=== PATIENT | male | born 2000 | race Caucasian/White ===

== ENCOUNTER 2024-05-14 14:25 | Inpatient (IN) | payer BC ==
[2024-05-14] VITALS (7 sets, daily range): BP systolic 121–148; BP diastolic 59–91; TEMP 98.5–98.8; O2SAT 96–99
[~2024-05-14] VITALS: Ht 185.4 cm; Wt 63.3 kg
[2024-05-14 15:07] LABS: BASO # 0.2 10^3/uL (0.0-0.2); BASO % 0.6 % (0.0-1.0); HEMATOCRIT 52.5 % (42.0-52.0); HEMOGLOBIN 16.5 g/dl (13.5-17.5); LYMPH # 3.3 10^3/uL (1.5-5.0); LYMPH % 12.3 % (24.0-44.0); MEAN CORPUSCULAR HEMOGLOBIN 30.3 pg (27.0-33.0); MEAN CORPUSCULAR HGB CONC 31.4 g/dl (32.0-36.5); MEAN CORPUSCULAR VOLUME 96.5 fl (80.0-96.0); MONO # 1.9 10^3/uL (0.0-0.8); NEUTROPHILS # 20.3 10^3/uL (1.5-8.5); NEUTROPHILS % 75.8 % (36.0-66.0); PLATELET COUNT, AUTOMATED 511 10^3/uL (150-450); RED BLOOD COUNT 5.44 10^6/uL (4.30-6.10); WHITE BLOOD COUNT 26.8 10^3/uL (4.0-10.0)
[2024-05-14] MEDS: HumuLIN R (REGULAR) INSULIN (NovoLIN R) **100U/ML** PER UNIT IV ONE (15:15)
[2024-05-14] MEDS: NS 1,000 ML IV ONE ×3 (15:16→17:18)
[2024-05-14 15:24] LABS: VENOUS BASE EXCESS -28.3 (-2.0-2.0); VENOUS HCO3 3.5 MMOL/L (23.0-27.0); VENOUS O2 SATURATION 93.7 % (60.0-80.0); VENOUS PARTIAL PRESSURE CO2 18.1 mmHg (38.0-50.0); VENOUS PARTIAL PRESSURE O2 87.8 mmHg (30.0-50.0); VENOUS PH 6.906 UNITS (7.330-7.430); VENOUS STANDARD HCO3 6.7 MMOL/L; VENOUS TOTAL CO2 4.1 MMOL/L (24.0-28.0)
[2024-05-14] MEDS ORDERED: INSULIN IV RATE CHANGE DOCUMENTATION ML/HR XX SCH (15:35)
[2024-05-14 15:42] LABS: ACETONE/KETONE > 4.50 MMOL/L (0.02-0.27)
[2024-05-14 15:43] LABS: OSMOLALITY SERUM 353 MOSM/KG (275-295)
[2024-05-14 15:45] LABS: ALBUMIN 4.5 G/DL (3.2-5.2); ALKALINE PHOSPHATASE 202 U/L (40-129); ALT/SGPT 20 U/L (7.0-40); AST/SGOT 13 U/L (<34); BILIRUBIN,DIRECT 0.1 MG/DL (<0.4); BILIRUBIN,TOTAL 0.4 MG/DL (0.3-1.2); BLOOD UREA NITROGEN 31 MG/DL (9-23); CALCIUM LEVEL 9.8 MG/DL (8.5-10.1); CHLORIDE LEVEL 85 MMOL/L (98-107); CREATININE FOR GFR 1.44 MG/DL (0.70-1.30); GLOMERULAR FILTRATION RATE > 60.0 (>60); SODIUM LEVEL 123 MMOL/L (136-145); TOTAL PROTEIN 9.1 G/DL (5.7-8.2)
[2024-05-14] MEDS: ONDANSETRON 4MG 2ML VIAL IV ONE (15:45)
[2024-05-14] MEDS: INSULIN REGULAR IN 0.9 % NACL 100 UNIT in IV 1 EA IV SCH (15:46)
[2024-05-14 15:53] LABS: CARBON DIOXIDE LEVEL < 10.0 MMOL/L (20-31); GLUCOSE, FASTING 793 MG/DL (60-100); POTASSIUM SERUM 6.2 MMOL/L (3.5-5.1)
[2024-05-14] MEDS: CALCIUM GLUCONATE 1,000 MG in DEXTROSE 5% (D5W) MINI-BAG PLU 100 ML IV ONE (16:23)
[2024-05-14] MEDS ORDERED: INSUH10VL INJ (16:44)
[2024-05-14] MEDS ORDERED: HOME MED LIST COMPLETE! XX SCH (16:45)
[2024-05-14] MEDS ORDERED: INSULIN REGULAR IN 0.9 % NACL 100 UNIT in IV 1 EA IV SCH (17:20)
[2024-05-14 17:58] LABS: VENOUS BASE EXCESS -23.9 (-2.0-2.0); VENOUS HCO3 5.6 MMOL/L (23.0-27.0); VENOUS O2 SATURATION 91.9 % (60.0-80.0); VENOUS PARTIAL PRESSURE CO2 22.5 mmHg (38.0-50.0); VENOUS PARTIAL PRESSURE O2 70.2 mmHg (30.0-50.0); VENOUS PH 7.017 UNITS (7.330-7.430); VENOUS STANDARD HCO3 8.6 MMOL/L; VENOUS TOTAL CO2 6.3 MMOL/L (24.0-28.0)
[2024-05-14] MEDS: INSULIN IV RATE CHANGE DOCUMENTATION ML/HR XX SCH (18:02)
[2024-05-14] MEDS: NS 1,000 ML IV SCH (18:24)
[2024-05-14 19:22] LABS: BLOOD UREA NITROGEN 27 MG/DL (9-23); CALCIUM LEVEL 8.6 MG/DL (8.5-10.1); CARBON DIOXIDE LEVEL < 10.0 MMOL/L (20-31); CHLORIDE LEVEL 103 MMOL/L (98-107); CREATININE FOR GFR 1.04 MG/DL (0.70-1.30); GLOMERULAR FILTRATION RATE > 60.0 (>60); GLUCOSE, FASTING 406 MG/DL (60-100); POTASSIUM SERUM 4.9 MMOL/L (3.5-5.1); SODIUM LEVEL 136 MMOL/L (136-145)
[2024-05-14] MEDS: SODIUM BICARBONATE 8.4% INJ 50ML SYRINGE IV STA (21:05)
[2024-05-14 21:36] LABS: VENOUS BASE EXCESS -10.7 (-2.0-2.0); VENOUS HCO3 13.9 MMOL/L (23.0-27.0); VENOUS O2 SATURATION 98.7 % (60.0-80.0); VENOUS PARTIAL PRESSURE CO2 28.3 mmHg (38.0-50.0); VENOUS PARTIAL PRESSURE O2 157.5 mmHg (30.0-50.0); VENOUS STANDARD HCO3 16.2 MMOL/L; VENOUS TOTAL CO2 14.8 MMOL/L (24.0-28.0)
[2024-05-14] MEDS ORDERED: D5W/0.9% SODIUM CHLORIDE 1,000 ML IV SCH (22:05)
[2024-05-14 22:11] LABS: BLOOD UREA NITROGEN 23 MG/DL (9-23); CALCIUM LEVEL 8.8 MG/DL (8.5-10.1); CARBON DIOXIDE LEVEL 14 MMOL/L (20-31); CHLORIDE LEVEL 108 MMOL/L (98-107); CREATININE FOR GFR 0.82 MG/DL (0.70-1.30); GLOMERULAR FILTRATION RATE > 60.0 (>60); GLUCOSE, FASTING 194 MG/DL (60-100); SODIUM LEVEL 138 MMOL/L (136-145)
[2024-05-14] MEDS: KCL 20MEQ IN D5/NS 1000ML 1,000 ML IV SCH (23:01)
[2024-05-15] VITALS (11 sets, daily range): BP systolic 105–131; BP diastolic 56–80; TEMP 98.4–99.3; O2SAT 97–100
[2024-05-15 01:38] LABS: VENOUS BASE EXCESS -7.7 (-2.0-2.0); VENOUS HCO3 16.6 MMOL/L (23.0-27.0); VENOUS O2 SATURATION 99.2 % (60.0-80.0); VENOUS PARTIAL PRESSURE CO2 30.8 mmHg (38.0-50.0); VENOUS PARTIAL PRESSURE O2 236.6 mmHg (30.0-50.0); VENOUS PH 7.349 UNITS (7.330-7.430); VENOUS STANDARD HCO3 18.3 MMOL/L; VENOUS TOTAL CO2 17.5 MMOL/L (24.0-28.0)
[2024-05-15 02:11] LABS: BLOOD UREA NITROGEN 20 MG/DL (9-23); CALCIUM LEVEL 8.7 MG/DL (8.5-10.1); CARBON DIOXIDE LEVEL 18 MMOL/L (20-31); CHLORIDE LEVEL 110 MMOL/L (98-107); CREATININE FOR GFR 0.67 MG/DL (0.70-1.30); GLOMERULAR FILTRATION RATE > 60.0 (>60); GLUCOSE, FASTING 178 MG/DL (60-100); SODIUM LEVEL 138 MMOL/L (136-145)
[2024-05-15] MEDS: LEVEMIR (INSULIN DETEMIR) 1 UNITS/0.01ML SC ONE (04:48)
[2024-05-15 05:39] LABS: VENOUS BASE EXCESS -5.4 (-2.0-2.0); VENOUS O2 SATURATION 98.3 % (60.0-80.0); VENOUS PARTIAL PRESSURE CO2 33.7 mmHg (38.0-50.0); VENOUS PARTIAL PRESSURE O2 117.1 mmHg (30.0-50.0); VENOUS PH 7.368 UNITS (7.330-7.430); VENOUS STANDARD HCO3 20.1 MMOL/L
[2024-05-15 05:47] LABS: MEAN CORPUSCULAR HEMOGLOBIN 30.5 pg (27.0-33.0); MEAN CORPUSCULAR HGB CONC 35.7 g/dl (32.0-36.5); MEAN CORPUSCULAR VOLUME 85.3 fl (80.0-96.0); WHITE BLOOD COUNT 12.2 10^3/uL (4.0-10.0)
[2024-05-15 06:02] LABS: HEMATOCRIT 36.7 % (42.0-52.0); HEMOGLOBIN 13.1 g/dl (13.5-17.5); PLATELET COUNT, AUTOMATED 269 10^3/uL (150-450)
[2024-05-15 06:19] LABS: BLOOD UREA NITROGEN 17 MG/DL (9-23); CALCIUM LEVEL 9.1 MG/DL (8.5-10.1); CARBON DIOXIDE LEVEL 19 MMOL/L (20-31); CHLORIDE LEVEL 107 MMOL/L (98-107); GLOMERULAR FILTRATION RATE > 60.0 (>60); GLUCOSE, FASTING 143 MG/DL (60-100); MAGNESIUM LEVEL 1.7 MG/DL (1.8-2.4); PHOSPHORUS LEVEL 2.1 MG/DL (2.5-4.9); POTASSIUM SERUM 3.8 MMOL/L (3.5-5.1); SODIUM LEVEL 138 MMOL/L (136-145)
[2024-05-15] MEDS ORDERED: DEXTROSE 50% 50ML SYRINGE IV PRN (10:55)
[2024-05-15] MEDS ORDERED: GLUCOSE 4 GM CHEW PO PRN (10:55)
[2024-05-15] MEDS ORDERED: GLUCAGON INJ 1MG VIAL SC PRN (10:55)
[2024-05-15] MEDS: INSULIN LISPRO (NovoLOG) PER UNIT SC SCH ×3 (12:20→21:00)
[2024-05-15] MEDS ORDERED: MAG SULF 1GM/100ML (MAG RUN) 1 GM in IV 1 EA IV SCH (13:00)
[2024-05-15 13:17] LABS: BLOOD UREA NITROGEN 16 MG/DL (9-23); CALCIUM LEVEL 9.4 MG/DL (8.5-10.1); CARBON DIOXIDE LEVEL 23 MMOL/L (20-31); CHLORIDE LEVEL 106 MMOL/L (98-107); CREATININE FOR GFR 0.53 MG/DL (0.70-1.30); GLOMERULAR FILTRATION RATE > 60.0 (>60); GLUCOSE, FASTING 152 MG/DL (60-100); POTASSIUM SERUM 3.8 MMOL/L (3.5-5.1); SODIUM LEVEL 137 MMOL/L (136-145)
[2024-05-15] MEDS: MAGNESIUM OXIDE 400MG TAB (MAG-OX) PO SCH (14:07)
[2024-05-15] MEDS: PANTOPRAZOLE 40MG VIAL IV SCH (16:26)
[2024-05-15] MEDS: K-PHOS NEUTRAL 250MG TABLET (SOD.PHOSPHATE/POT.PHOSPHATE) PO SCH (16:26)
[2024-05-15] MEDS: CEPACOL LOZENGE PO PRN (17:14)
[2024-05-15] MEDS: ACETAMINOPHEN 325 MG TAB PO ONE (20:57)
[2024-05-15] MEDS: CIPRODEX OTIC SUSP 7.5ML AD SCH (20:57)
[2024-05-15] MEDS ORDERED: INSULIN LISPRO (NovoLOG) PER UNIT SC SCH (21:00)
[2024-05-15] MEDS ORDERED: LEVEMIR (INSULIN DETEMIR) 1 UNITS/0.01ML SC SCH (21:00)
[2024-05-16 04:03] LABS: BASO % 0.2 % (0.0-1.0); EOS % 0.2 % (0.0-3.0); HEMATOCRIT 36.9 % (42.0-52.0); HEMOGLOBIN 13.2 g/dl (13.5-17.5); LYMPH # 2.1 10^3/uL (1.5-5.0); LYMPH % 25.6 % (24.0-44.0); MEAN CORPUSCULAR HEMOGLOBIN 30.6 pg (27.0-33.0); MEAN CORPUSCULAR HGB CONC 35.8 g/dl (32.0-36.5); MEAN CORPUSCULAR VOLUME 85.4 fl (80.0-96.0); NEUTROPHILS % 61.8 % (36.0-66.0); PLATELET COUNT, AUTOMATED 230 10^3/uL (150-450); RED BLOOD COUNT 4.32 10^6/uL (4.30-6.10); WHITE BLOOD COUNT 8.2 10^3/uL (4.0-10.0)
[2024-05-16 05:00] VITALS: BP 102/63; TEMP 98.3; O2SAT 100
[2024-05-16 05:00] LABS: BLOOD UREA NITROGEN 15 MG/DL (9-23); CALCIUM LEVEL 8.9 MG/DL (8.5-10.1); CARBON DIOXIDE LEVEL 28 MMOL/L (20-31); CHLORIDE LEVEL 105 MMOL/L (98-107); CREATININE FOR GFR 0.54 MG/DL (0.70-1.30); GLOMERULAR FILTRATION RATE > 60.0 (>60); GLUCOSE, FASTING 90 MG/DL (60-100); PHOSPHORUS LEVEL 2.8 MG/DL (2.5-4.9); POTASSIUM SERUM 2.9 MMOL/L (3.5-5.1); SODIUM LEVEL 139 MMOL/L (136-145)
[2024-05-16] MEDS: KCL 10MEQ/100ML SWI (KRUN) 10 MEQ in IV 1 EA IV SCH (06:12)
[2024-05-16] MEDS: POTASSIUM CHLORIDE 10% LIQ 20MEQ/15ML UDC PO ONE (06:12)
[2024-05-16 08:00] VITALS: BP 128/78; TEMP 98.3; O2SAT 99
[2024-05-16] MEDS: POTASSIUM CHLORIDE 10% LIQ 20MEQ/15ML UDC PO STA (08:06)
[2024-05-16] MEDS: ENOXAPARIN 40MG/0.4ML SYRINGE (J1650 PER 10MG) SC SCH (08:17)
[2024-05-16] MEDS ORDERED: CIPRHCOTIC AD (11:54)
[2024-05-16] MEDS ORDERED: OMEP40CA4 PO (11:54)
[2024-05-16] MEDS ORDERED: POTA-298 PO (11:54)
== END 2024-05-16 12:50 | disposition home or self-care (01) | DRG 813 ==
LOC: M ED 14:25 → INTOOBSV 16:28 → OBSVTOIN 16:28 → M ED INP 16:28 → M ICU 17:47
PROVIDERS: ADMIT Internal Medicine Pulmonary Disease; ATTEND Internal Medicine
DX: T85.624A Displacement of insulin pump, initial encounter (principal); E10.10 Type 1 diabetes mellitus with ketoacidosis without coma; N17.9 Acute kidney failure, unspecified; E87.5 Hyperkalemia; H60.91 Unspecified otitis externa, right ear; R00.0 Tachycardia, unspecified; D72.829 Elevated white blood cell count, unspecified; Y83.8 Other surgical procedures as the cause of abnormal reaction of the patient, or of later complication, without mention of misadventure at the time of the procedure